=== PATIENT | male | born 1930 | race Caucasian/White ===

== ENCOUNTER 2020-11-13 12:38 | Inpatient (IN) ==
[2020-11-13 14:08] LABS: Bilirubin,Urine Negative (Negative); Blood, Urine Moderate mg/dL (Negative); Glucose,Urine (UA) 50 mg/dL (Negative); Ketones,Urine Negative (Negative); Nitrite,Urine Negative (Negative); Protein,Urine Negative; RBC,Urine 5 /HPF (0-4); Squamous Epithelial Cell,Urine Occasional /HPF (0-10); Urine Appearance CLEAR (Clear); Urine Color Yellow (Yellow); Urine Specific Gravity 1.013 (1.001-1.035); Urine Urobilinogen < 2.0 EU/DL (0.2-1.0)
[2020-11-13 14:12] LABS: Basophils % 0.4 % (0.0-0.8); Eosinophils % 0.4 % (0.00-10.9); Hematocrit 44.4 VOL% (42.0-52.0); Hemoglobin 14.6 GM/DL (14.0-18.0); Immature Granulocytes % 0.2 %; Immature Granulocytes Absolute 0.02 #; Lymphocytes # 2.8 10*3/uL (1.4-4.0); Lymphocytes % 30.5 % (21.2-54.2); Mean Corpuscular HGB Conc 32.9 GM/DL (32-36); Mean Corpuscular Volume 95.5 FL (87-102); Mean Platelet Volume 11.6 FL (9.6-12.0); Monocytes % 10.3 % (1.7-12.7); Neutrophils % 58.2 % (38.7-73.9); Red Blood Count 4.65 MC/CUMM (3.8-5.5); Red Cell Distribution Width 14.4 % (9.3-17.3)
[2020-11-13 14:14] LABS: Platelet Count 49 T/CUMM (130-400)
[2020-11-13 14:37] LABS: Albumin 3.5 G/DL (3.4-5.0); Bilirubin,Total 1.7 MG/DL (0.20-1.00); Calcium 9.3 MG/DL (8.5-10.1); Osmolality,Calculated 278.8 MOS/KG (273-304); Potassium 4.3 MMOL/L (3.5-5.1); Total Protein 7.2 G/DL (6.4-8.2)
[2020-11-13 14:48] LABS: Platelet Estimate Decreased
[2020-11-13 14:51] LABS: Anisocytosis Slight; Macrocytosis 1+
[2020-11-13] MEDS ORDERED: LABETALOL 20 MG/4 ML SYRINGE IV PRN (15:37)
[2020-11-13] MEDS ORDERED: DEXTROSE 50% 25 GM/50 ML VIAL IV PRN (15:45)
[2020-11-13] MEDS ORDERED: GLUCAGON 1 MG VIAL IM PRN (15:45)
[2020-11-13] MEDS: ENOXAPARIN 40 MG/0.4 ML SYRINGE SUBCUT SCH (17:39)
[2020-11-13] MEDS: INSULIN REGULAR 100 UNIT/ML SUBCUT SCH ×2 (17:41→21:50)
[2020-11-13] MEDS: ursodioL 300 MG CAPSULE PO SCH (21:49)
[2020-11-14] MEDS ORDERED: ACETAMINOPHEN 325 MG TABLET PO PRN (01:03)
[2020-11-14 05:29] LABS: Basophils # 0.1 10*3/uL (0.0-0.2); Basophils % 0.6 % (0.0-0.8); Eosinophils # 0.1 10*3/uL (0.0-0.87); Eosinophils % 0.6 % (0.00-10.9); Hematocrit 44.2 VOL% (42.0-52.0); Hemoglobin 14.9 GM/DL (14.0-18.0); Immature Granulocytes % 0.3 %; Immature Granulocytes Absolute 0.03 #; Lymphocytes # 2.6 10*3/uL (1.4-4.0); Mean Corpuscular HGB Conc 33.7 GM/DL (32-36); Mean Corpuscular Volume 95.3 FL (87-102); Mean Platelet Volume 12.2 FL (9.6-12.0); Monocytes % 8.3 % (1.7-12.7); Neutrophils % 60.2 % (38.7-73.9); Red Blood Count 4.64 MC/CUMM (3.8-5.5); Red Cell Distribution Width 14.2 % (9.3-17.3); White Blood Count 8.8 T/CUMM (4-12)
[2020-11-14 05:35] LABS: Platelet Count 42 T/CUMM (130-400)
[2020-11-14 05:59] LABS: Platelet Estimate Decreased
[2020-11-14 06:12] LABS: Calcium 9.2 MG/DL (8.5-10.1); Osmolality,Calculated 278.8 MOS/KG (273-304); Potassium 4.2 MMOL/L (3.5-5.1); Risk Ratio 5.36; VLDL Cholesterol 21.8 MG/DL
[2020-11-14] MEDS: PANTOPRAZOLE 40 MG TABLET PO SCH (08:38)
[2020-11-14] MEDS: CLOPIDOGREL 75 MG TABLET PO SCH (08:38)
[2020-11-14] MEDS: ursodioL 300 MG CAPSULE PO SCH ×2 (08:38→20:21)
[2020-11-14] MEDS: INSULIN REGULAR 100 UNIT/ML SUBCUT SCH ×4 (08:38→20:22)
[2020-11-14] MEDS ORDERED: ASPIRIN 325 MG TABLET PO SCH (09:00)
[2020-11-14] MEDS: ENOXAPARIN 40 MG/0.4 ML SYRINGE SUBCUT SCH (20:22)
[2020-11-15] MEDS: INSULIN REGULAR 100 UNIT/ML SUBCUT SCH ×2 (07:33→12:39)
[2020-11-15] MEDS ORDERED: ASPIRIN EC 81 MG TABLET PO SCH (09:00)
[2020-11-15] MEDS: ursodioL 300 MG CAPSULE PO SCH (09:55)
[2020-11-15] MEDS: PANTOPRAZOLE 40 MG TABLET PO SCH (09:55)
[2020-11-15] MEDS: CLOPIDOGREL 75 MG TABLET PO SCH (09:55)
[2020-11-15 11:44] VITALS: BP 129/76
== END 2020-11-15 14:33 | disposition home health service (06) | DRG 65 ==
LOC: N.ED 12:38 → N.EDINP 15:37 → SUATTDRO 15:37 → N.EDINP 17:05 → N.5E 17:29
PROVIDERS: ADMIT Internal Medicine; ATTEND Emergency Medicine